=== PATIENT | female | born 1980 | race African-American/Black ===

== ENCOUNTER 2016-11-06 19:59 | Emergency (ER) | payer OTHER | END 2016-11-06 20:07 | disposition home or self-care (01) | LOC: CFTX 19:59 | DX: J02.9 Acute pharyngitis, unspecified (principal); F17.210 Nicotine dependence, cigarettes, uncomplicated | CPT/HCPCS: 87651; 99282 ==

== ENCOUNTER 2017-01-21 09:45 | Emergency (ER) | payer OTHER ==
[~2017-01-21] VITALS: Ht 157.5 cm; Wt 76.2 kg
== END 2017-01-21 10:54 | disposition home or self-care (01) ==
LOC: CED 09:45 → CFTX 09:45
DX: K04.7 Periapical abscess without sinus (principal); M54.32 Sciatica, left side; M25.552 Pain in left hip; F17.210 Nicotine dependence, cigarettes, uncomplicated
CPT/HCPCS: 99282